=== PATIENT | female | born 1950 | race Native Hawaiian/Other Pacific Islander ===

== ENCOUNTER 2017-02-16 12:09 | Inpatient (IN) | payer OTHER, MEDICARE ==
[~2017-02-16] VITALS: Ht 139.7 cm; Wt 33.6 kg
--- NOTE | 2017-02-16 12:20 | NUR ---
PT IS IN ROOM #2B , WAITING FOR DR RYAN EVALUATION.
[2017-02-16] MEDS ORDERED: FAMO40TA71 PO (12:30)
[2017-02-16] MEDS ORDERED: ASPI81TA31 PO (12:30)
[2017-02-16] MEDS ORDERED: [UNRECOGNIZED DRUG - REMARK] SQ (12:30)
[2017-02-16] MEDS ORDERED: DONE5TAB3 PO (12:30)
[2017-02-16] MEDS ORDERED: GEMF600T PO (12:30)
[2017-02-16] MEDS ORDERED: TOPI25TA8 PO (12:30)
[2017-02-16] MEDS ORDERED: METO25TA6 PO (12:30)
[2017-02-16] MEDS ORDERED: LEVE750T4 PO (12:30)
[2017-02-16] MEDS ORDERED: METF10002 PO (12:30)
--- NOTE | 2017-02-16 12:45 | NUR ---
DR RYAN EVALUATED THE PT.
[2017-02-16 13:22] LABS: BASOPHILS % (AUTO) 0.3 % (0.0-2.0); EOSINOPHILS # (AUTO) 0.1 K/uL (0.0-0.7); EOSINOPHILS % (AUTO) 0.8 % (0.0-7.0); HEMATOCRIT 34.8 % (37.0-47.0); HEMOGLOBIN 12.1 g/dL (12.0-16.0); LYMPHOCYTES # (AUTO) 1.9 K/uL (0.8-4.8); LYMPHOCYTES % (AUTO) 13.1 % (20.5-51.5); MEAN CORPUSCULAR HEMOGLOBIN 30.9 uug (27.0-31.0); MEAN CORPUSCULAR HGB CONC 35 g/dL (32.0-37.0); MEAN CORPUSCULAR VOLUME 88.5 fL (81.0-99.0); NEUTROPHILS # (AUTO) 11.3 K/uL (1.8-8.9); NEUTROPHILS % (AUTO) 78.8 % (38.5-71.5); PLATELET COUNT (AUTO) 233 K/uL (150-450); RED BLOOD CELL COUNT(AUTO) 3.94 MIL/uL (4.20-5.40); RED CELL DISTRIBUTION WIDTH 12.9 % (11.5-14.5); WHITE BLOOD COUNT (AUTO) 14.3 K/uL (4.0-11.2)
[2017-02-16 13:26] LABS: CALCIUM 9.4 mg/dL (8.5-10.1); CREATININE 1.2 mg/dL (0.6-1.3); POTASSIUM 3.8 mmol/L (3.5-5.1)
[2017-02-16 13:33] LABS: TROPONIN I < 0.017 ng/mL (0.00-0.056)
[2017-02-16 13:38] LABS: ALBUMIN 4.1 g/dL (3.4-5.0); BILIRUBIN,DIRECT 0.1 mg/dL (0.0-0.2); BILIRUBIN,TOTAL 0.3 mg/dL (0.2-1.0)
[2017-02-16 13:43] LABS: LACTIC ACID 2.5 mmol/L (0.4-2.0)
[2017-02-16] MEDS ORDERED: IV NORMAL SALINE 1000 ML BAG IV ONE (14:00)
[2017-02-16] MEDS ORDERED: PIPERACILLIN SODIUM/TAZOBACTAM 3.375 G in IV DEXTROSE 5% 50 ML IV ONE (14:00)
--- NOTE | 2017-02-16 14:08 | NUR ---
Pt transferred to ct via [facility].
[2017-02-16] MEDS ORDERED: PIPERACILLIN/TAZOBACTAM/D5W 50 ML IV ONE (14:26)
--- NOTE | 2017-02-16 14:29 | NUR ---
CODE SEPSIS WAS CALLED BY DR RYAN. CODE SEPEIS PROTOCOL STARTED.
--- NOTE | 2017-02-16 15:56 | NUR ---
PT WAS TRANSFERED TO TELEMETRY ROOM #214. REPORT WAS GIVEN TO STORAGE GARAGE ATTENDANT.
[2017-02-16] MEDS ORDERED: ACETAMINOPHEN 325 MG TABLET PO PRN (16:30)
[2017-02-16] MEDS ORDERED: ZOLPIDEM 5 MG TABLET PO PRN (16:30)
[2017-02-16] MEDS ORDERED: MAGNESIUM HYDROXIDE 30 ML LIQUID UDC PO PRN (16:30)
[2017-02-16] MEDS ORDERED: HYDROCODONE/APAP 5-325MG TABLET PO PRN (16:30)
[2017-02-16] MEDS ORDERED: ONDANSETRON 4 MG/2 ML VIAL IV PRN (16:30)
[2017-02-16] MEDS ORDERED: Z GUARD REMEDY PASTE 57 GM TUBE TOP PRN (16:30)
[2017-02-16] MEDS ORDERED: DEXTROSE 50% 50 ML DISP.SYRIN IV PRN (16:30)
[2017-02-16] MEDS ORDERED: ENOXAPARIN SODIUM 40 MG/0.4 ML DISP.SYRIN SQ SCH (16:30)
[2017-02-16 16:38] VITALS: BP 98/59
--- NOTE | 2017-02-16 16:38 | NUR ---
Received from ER, per jose this 66 yo female, with symptoms of right sided weakness from report, with diagnosis of Sepsis. Transferred to bed comfortably.Routine admission care rendered. Awake, alert, confused, Japanese speaking,smiling, cooperative with care. Noted loose stool, incontinence care done. Saline right forerarm. Dr. Carroll informed of admission with orders
[2017-02-16] MEDS ORDERED: METOPROLOL TARTRATE 25 MG TABLET PO SCH (17:00)
[2017-02-16] MEDS ORDERED: METFORMIN HCL 500 MG TABLET PO SCH (18:00)
[2017-02-16] MEDS: BLOOD SUGAR DIAGNOSTIC 1 EACH STRIP VI SCH ×2 (18:04→21:37)
[2017-02-16] MEDS: TOPIRAMATE 25 MG TABLET PO SCH (18:04)
[2017-02-16] MEDS: IV NS 1000 ML 1,000 ML IV PRN (18:08)
[2017-02-16] MEDS: INSULIN REGULAR, HUMAN 300 UNIT/3 ML VIAL SQ PRN (18:09)
--- NOTE | 2017-02-16 18:23 | NUR ---
Ate dinner. IVF started as ordered. Kept dry and comfortable. Tele SB 59.
[2017-02-16 19:00] VITALS: BP 94/59
[2017-02-16] MEDS: DONEPEZIL 5 MG TABLET PO SCH (20:35)
[2017-02-16] MEDS: METOPROLOL TARTRATE 25 MG TABLET PO SCH (20:35)
[2017-02-16] MEDS: LEVETIRACETAM 500 MG TABLET PO SCH (20:35)
[2017-02-16] MEDS: PIPERACILLIN/TAZOBACTAM/D5W 50 ML IV SCH (20:37)
[2017-02-16] MEDS ORDERED: ENOXAPARIN SODIUM 30 MG/0.3 ML DISP.SYRIN SUBCUT SCH (21:00)
[2017-02-16] MEDS ORDERED: LEVETIRACETAM 250 MG TABLET PO SCH (21:00)
[2017-02-16] MEDS ORDERED: PIPERACILLIN SODIUM/TAZOBACTAM 4.5 G in IV DEXTROSE 5% 50 ML IV SCH (22:00)
[2017-02-17] VITALS: BP 94/55
[2017-02-17] MEDS: PIPERACILLIN/TAZOBACTAM/D5W 50 ML IV SCH ×4 (01:07→20:45)
[2017-02-17 04:00] VITALS: BP 121/80
[2017-02-17 04:53] LABS: *BILIRUBIN,URIN NEGATIVE (NEGATIVE); *BLOOD, URINE Trace-intact (NEGATIVE); *CLARITY,URINE CLEAR (CLEAR); *COLOR,URINE YELLOW (YELLOW); *KETONES,URINE NEGATIVE (NEGATIVE); *PROTEIN,URINE NEGATIVE (NEGATIVE); *UROBILINOGEN,URINE 0.2 E.U./dl (NORMAL); LEUKOCYTE ESTERASE ,URINE NEGATIVE (NEGATIVE); NITRITE, URINE NEGATIVE (NEGATIVE); UGLUCOSE NEGATIVE (NEGATIVE)
[2017-02-17 05:00] LABS: BACTERIA,URINE FEW /HPF (NONE SEEN); RBC,URINE 0-3 /HPF (0-3); SQUAMOUS EPITHELIAL CELL,UR FEW /HPF (NONE SEEN)
--- NOTE | 2017-02-17 05:34 | NUR ---
PT SLEPT WELL THROUGH THE NIGHT AND WAS EASILY AWOKEN. PT SHOWED NO S/S OF PAIN OR DIFFICULTY BREATHING. PT IS IN NO ACUTE DISTRESS, NO SIGNIFICANT CHANGES NOTED. PT WAS SINUS RHYTHM/ SINUS DEYANIRA ON THE MONITOR. IVF RUNNING, TOLERATING WELL. ALL NEEDS MET SAFETY MEASURES ARE IN PLACE, CALL LIGHT WITHIN REACH, BED ALARM IS ON.
[2017-02-17] MEDS: PANTOPRAZOLE SODIUM 40 MG TABLET.DR PO SCH (06:33)
[2017-02-17] MEDS: BLOOD SUGAR DIAGNOSTIC 1 EACH STRIP VI SCH ×4 (06:54→22:25)
[2017-02-17] MEDS: TOPIRAMATE 25 MG TABLET PO SCH ×2 (08:15→17:04)
[2017-02-17] MEDS: GEMFIBROZIL 600 MG TABLET PO SCH (08:15)
[2017-02-17] MEDS: ASPIRIN 81 MG TAB.CHEW PO SCH (08:15)
[2017-02-17] MEDS: LEVETIRACETAM 500 MG TABLET PO SCH (08:15)
[2017-02-17] MEDS: METOPROLOL TARTRATE 25 MG TABLET PO SCH ×2 (08:19→20:44)
[2017-02-17] MEDS ORDERED: VANCOMYCIN IV 500 MG in IV DEXTROSE 5% 100 ML IV ONE (09:00)
[2017-02-17 09:15] LABS: CALCIUM 8.3 mg/dL (8.5-10.1); CREATININE 0.8 mg/dL (0.6-1.3); MAGNESIUM 1.8 mg/dL (1.8-2.4); PHOSPHOROUS 3.4 mg/dL (2.5-4.9); POTASSIUM 3.4 mmol/L (3.5-5.1)
[2017-02-17 09:25] LABS: THYROID STIMULATING HORMONE 0.472 mIU/mL (0.358-3.740)
[2017-02-17 09:29] LABS: BASOPHILS % (AUTO) 0.2 % (0.0-2.0); EOSINOPHILS # (AUTO) 0.1 K/uL (0.0-0.7); EOSINOPHILS % (AUTO) 0.6 % (0.0-7.0); HEMATOCRIT 32.5 % (37.0-47.0); HEMOGLOBIN 11.7 g/dL (12.0-16.0); LYMPHOCYTES # (AUTO) 1.2 K/uL (0.8-4.8); LYMPHOCYTES % (AUTO) 11.6 % (20.5-51.5); MEAN CORPUSCULAR HEMOGLOBIN 31.8 uug (27.0-31.0); MEAN CORPUSCULAR HGB CONC 36 g/dL (32.0-37.0); MEAN CORPUSCULAR VOLUME 88.5 fL (81.0-99.0); MONOCYTES # (AUTO) 0.6 K/uL (0.1-1.30); MONOCYTES % (AUTO) 5.6 % (0.0-11.0); NEUTROPHILS # (AUTO) 8.2 K/uL (1.8-8.9); PLATELET COUNT (AUTO) 177 K/uL (150-450); RED BLOOD CELL COUNT(AUTO) 3.67 MIL/uL (4.20-5.40); RED CELL DISTRIBUTION WIDTH 12.9 % (11.5-14.5); WHITE BLOOD COUNT (AUTO) 10.1 K/uL (4.0-11.2)
[2017-02-17 10:32] LABS: EOSINOPHILS % (MANUAL) 1 % (0-8); LYMPHOCYTES % (MANUAL) 13 % (20-40); MONOCYTES % (MANUAL) 6 % (2-10); NEUTROPHILS % (MANUAL) 80 % (42-75); PLATELET ESTIMATE ADEQUATE
[2017-02-17 12:01] VITALS: BP 115/68
--- NOTE | 2017-02-17 14:47 | NUR ---
Clinical pharmacy note:Vancomycin dosing per pharmacy Subjective: To start Vancomycin dosing on this 66 year old female patient for sepsis unknown origin(possibly due to UTI or colitis) Objective: BUN 15 Scr 0.8 WBC 10.1 Temp 98.6 Assessment/plan: Vancomycin 500mg iv x1 was given today at 10am. Will continue as Vancomycin 500mg IV every 26hrs(second dose tomorrow at 1200) and draw trough by 4th(not ordered yet) for expected trough around 15. Will monitor renal function closely to adjust the dose if needed. Will follow daily.
[2017-02-17 15:30] VITALS: BP 113/65
--- NOTE | 2017-02-17 19:32 | NUR ---
PT IS CALM AND COOPERATIVE. NO S/S OF RESPIRATORY DISTRESS NOTED. NO PAIN NOTED. ALL SAFETY NEEDS ARE MET. DAUGHTER OF THE PT IS BY THE BEDSIDE.
[2017-02-17 20:00] VITALS: BP 98/58
[2017-02-17] MEDS: IV NS 1000 ML 1,000 ML IV PRN (20:02)
[2017-02-17] MEDS: DONEPEZIL 5 MG TABLET PO SCH (20:44)
[2017-02-17] MEDS: LEVETIRACETAM 250 MG TABLET PO SCH (20:44)
[2017-02-17] MEDS: MUPIROCIN 2% OINT 22 GM TUBE NS SCH (20:45)
[2017-02-17] MEDS: ENOXAPARIN SODIUM 40 MG/0.4 ML DISP.SYRIN SQ SCH (20:50)
[2017-02-17] MEDS: INSULIN REGULAR, HUMAN 300 UNIT/3 ML VIAL SQ PRN (22:27)
[2017-02-18] MEDS: PIPERACILLIN/TAZOBACTAM/D5W 50 ML IV SCH ×4 (01:59→20:30)
[2017-02-18 06:00] VITALS: BP 120/64
[2017-02-18] MEDS: PANTOPRAZOLE SODIUM 40 MG TABLET.DR PO SCH (06:08)
[2017-02-18] MEDS: BLOOD SUGAR DIAGNOSTIC 1 EACH STRIP VI SCH ×4 (06:42→20:50)
--- NOTE | 2017-02-18 07:15 | NUR ---
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 AFEBRILE. V/S CHECKED AND RECORDED. BS CHECKED, NO S/S OF HYPO/ HYPERGLYCEMIA NOTED. PT AT RISK FOR FALLS, KEPT GETTING UP FROM BED, BED ALARM ON. CLOSELY MONITORED.
--- NOTE | 2017-02-18 08:00 | NUR ---
AWAKE CONFUSED FORGETFUL ON FALL PRECAUTION BED ALARM ON AND CALL RASHID IN REACH EAT BREAKFAST SMALL AMT PO FLD ENC MARIYA MOD AMT
[2017-02-18] MEDS: TOPIRAMATE 25 MG TABLET PO SCH ×2 (08:20→17:44)
[2017-02-18] MEDS: GEMFIBROZIL 600 MG TABLET PO SCH (08:22)
[2017-02-18] MEDS: ASPIRIN 81 MG TAB.CHEW PO SCH (08:22)
[2017-02-18] MEDS: LEVETIRACETAM 250 MG TABLET PO SCH ×2 (08:22→20:30)
[2017-02-18] MEDS: MUPIROCIN 2% OINT 22 GM TUBE NS SCH ×2 (08:24→20:46)
[2017-02-18] MEDS: METOPROLOL TARTRATE 25 MG TABLET PO SCH ×2 (08:24→20:44)
[2017-02-18 12:00] VITALS: BP 141/79
[2017-02-18] MEDS: VANCOMYCIN IV 500 MG in IV DEXTROSE 5% 100 ML IV SCH ×2 (12:00→15:00)
[2017-02-18] MEDS: INSULIN REGULAR, HUMAN 300 UNIT/3 ML VIAL SQ PRN (12:10)
--- NOTE | 2017-02-18 14:18 | NUR ---
Clinical pharmacy note:Vancomycin dosing per pharmacy Subjective: To continue Vancomycin dosing on this 66 year old female patient for sepsis unknown origin (possibly due to UTI or colitis) Objective: BUN 15 (02/17) Scr 0.8 (02/17) WBC 10.1 (02/17) Temp 98.4 Assessment/plan: Will continue as Vancomycin 500mg IV every 26hrs and draw trough by 4th(not ordered yet) for expected trough around 15. Second dose was due today at 1200. Will monitor renal function closely to adjust the dose if needed. Will follow daily.
[2017-02-18 16:00] VITALS: BP 105/66
[2017-02-18 16:03] VITALS: BP 110/56
--- NOTE | 2017-02-18 17:15 | NUR ---
ACCU CHECK BS WAS CHECK IT WAS 47 AND RE CHECK AT [address] KEITA AND LAB WAS CALL TO INFORM AND DRAW BLOOD SUGAR AND GIVE ORANGE JUICE ,EAT DINNER SMALL AMT CLOSED OBSERVATION
--- NOTE | 2017-02-18 17:35 | NUR ---
RECHECK BLOOD SUGAR AGAIN IT WAS 105 AT THIS TIME
--- NOTE | 2017-02-18 19:00 | NUR ---
DR KEITA WAS CALL AGAIN REGARDING NO RETURN CALL AND MESSAGE LEFT
--- NOTE | 2017-02-18 19:30 | NUR ---
STABLE HEMODYNAMIC NO SOB OR PAIN SAFETY MEASURE PROVIDED CALL RASHID IN REACH AND BED ALARM ON
--- NOTE | 2017-02-18 19:45 | NUR ---
PATIENT RECEIVED IN BED RESTING COMFORTABLY. HEP LOCK IN RIGHT FOREARM INTACT AND PATENT. PT BREATH SOUNDS CLEAR UPON AUSCULTATION. NO ACUTE DISTRESS NOTED. BED IN LOW AND LOCKED POSITION, CALL LIGHT AT BED SIDE. WILL CONTINUE TO MONITOR FOR SAFETY.
[2017-02-18 20:00] VITALS: BP 91/56
[2017-02-18] MEDS: LACTOBACILLUS RHAMNOSUS GG 1 EACH CAPSULE PO SCH (20:30)
[2017-02-18] MEDS: DONEPEZIL 5 MG TABLET PO SCH (20:30)
[2017-02-18] MEDS: ENOXAPARIN SODIUM 40 MG/0.4 ML DISP.SYRIN SQ SCH (20:47)
--- NOTE | 2017-02-18 22:00 | NUR ---
PATIENT LOPRESSOR AT 2100 HELD FOR B/P 56, NO S/S HYPOTENSION NOTED. PT COMPLIANT WITH ALL OTHER MEDICATIONS. REMAINS ON ISOLATION OF THE NARES FOR MRSA. NO ACUTE DISTRESS NOTED. WILL CONTINUE TO MONITOR FOR SAFETY.
[2017-02-19] MEDS: PIPERACILLIN/TAZOBACTAM/D5W 50 ML IV SCH ×3 (02:29→12:42)
--- NOTE | 2017-02-19 03:32 | NUR ---
IV IN RIGHT FOREARM DISCONTINUED, OBSERVED LEAKING. IV #20 RESTARTED IN LEFT FOREARM, INTACT AND PATENT. PT TOLERATED WELL. NO ACUTE DISTRESS NOTED.
[2017-02-19 04:23] VITALS: BP 134/75
[2017-02-19] MEDS ORDERED: Z GUARD REMEDY PASTE 57 GM TUBE TOP PRN (05:45)
[2017-02-19] MEDS: PANTOPRAZOLE SODIUM 40 MG TABLET.DR PO SCH (06:15)
--- NOTE | 2017-02-19 06:44 | NUR ---
PT SLEPT INTERMITTENTLY THROUGH OUT THE NIGHT, AWAKE AT TIMES AMBULATING TO RESTROOM. PT COMPLIANT WITH PO MEDICATIONS. NO ACUTE DISTRESS NOTED.
[2017-02-19] MEDS: BLOOD SUGAR DIAGNOSTIC 1 EACH STRIP VI SCH ×2 (07:30→12:26)
--- NOTE | 2017-02-19 08:30 | NUR ---
AWAKE CONFUSED BUT COOPERATE AT THIS TIME NO PAIN OR SOB OOB AMB WELL IN ROOM ON FALL PRECAUTION CALL RASHID IN REACH
[2017-02-19] MEDS: TOPIRAMATE 25 MG TABLET PO SCH (08:33)
[2017-02-19] MEDS: LACTOBACILLUS RHAMNOSUS GG 1 EACH CAPSULE PO SCH (08:33)
[2017-02-19] MEDS: GEMFIBROZIL 600 MG TABLET PO SCH (08:33)
[2017-02-19] MEDS: LEVETIRACETAM 250 MG TABLET PO SCH (08:33)
[2017-02-19] MEDS: ASPIRIN 81 MG TAB.CHEW PO SCH (08:33)
[2017-02-19] MEDS: METOPROLOL TARTRATE 25 MG TABLET PO SCH (08:34)
[2017-02-19] MEDS ORDERED: LEVO500T15 PO (08:36)
[2017-02-19] MEDS: MUPIROCIN 2% OINT 22 GM TUBE NS SCH (08:40)
--- NOTE | 2017-02-19 10:00 | NUR ---
DR KEITA ,LIAT SEEN PATIENT AND ORDER OK TO D/C TO SNF WITH ORDER TODAY FAMILY SISTER AMADOU WAS INFORM AND AWARE OF D/C TO SNF TODAY D/C INSTRUCTION GIVEN REGARDING NEED TO F/U WITH PMD CONTINUE HOME MED AT SNF ,VERBALIZES UNDERSTAND
[2017-02-19 11:25] VITALS: BP 108/52
--- NOTE | 2017-02-19 11:38 | NUR ---
The patient will be discharged today back to [facility] [ ; [address] [place] [address]] via [facility]. Left a message to her niece, Aaliyah Walters [ ] and her sister, Leti Walters [ ], about the discharge. Her RN, Ronda, confirmed with the family that they agree with the discharge. Spoke to Jam from [facility], and he confirmed that they will re-admit the patient today. 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 Ronda will be calling them for the report.
--- NOTE | 2017-02-19 12:00 | NUR ---
EAT WELL OOB AMB IN ROOM NO PAIN OR SOB
[2017-02-19] MEDS: INSULIN REGULAR, HUMAN 300 UNIT/3 ML VIAL SQ PRN (12:30)
--- NOTE | 2017-02-19 13:00 | NUR ---
REPORT GIVEN TO WILLIE SALCEDO AT SNF VIA [facility]
--- NOTE | 2017-02-19 13:45 | NUR ---
Clinical pharmacy note:Vancomycin dosing per pharmacy Subjective: To continue Vancomycin dosing on this 66 year old female patient for sepsis unknown origin (possibly due to UTI or colitis) Objective: BUN 15 (02/17) Scr 0.8 (02/17) WBC 10.1 (02/17) Temp 97.9 Assessment/plan: Will continue same dose of Vancomycin 500mg IV every 26hrs for today. Plan to draw trough by 4th (ordered for 02/20 at 1530). Third dose is due today at 1400. Will monitor renal function closely to adjust the dose if needed. Will follow daily.
[2017-02-19] MEDS: VANCOMYCIN IV 500 MG in IV DEXTROSE 5% 100 ML IV SCH (13:58)
--- NOTE | 2017-02-19 15:00 | NUR ---
D/C TO SNF REPORT GIVEN TO AMB MAN CONDITION STABLE
== END 2017-02-19 15:00 | DRG 723 ==
LOC: ER 12:09 → TELE 16:09 → MED 02-17 13:30
DX: B34.9 Viral infection, unspecified (principal); G71.0 Muscular dystrophy; E11.9 Type 2 diabetes mellitus without complications; R13.10 Dysphagia, unspecified; F03.90 Unspecified dementia, unspecified severity, without behavioral disturbance, psychotic disturbance, mood disturbance, and anxiety; I10 Essential (primary) hypertension; E78.5 Hyperlipidemia, unspecified; G40.909 Epilepsy, unspecified, not intractable, without status epilepticus; I25.10 Atherosclerotic heart disease of native coronary artery without angina pectoris; K21.9 Gastro-esophageal reflux disease without esophagitis; F41.9 Anxiety disorder, unspecified; Z79.84 Long term (current) use of oral hypoglycemic drugs; Z22.322 Carrier or suspected carrier of Methicillin resistant Staphylococcus aureus; Z79.899 Other long term (current) drug therapy
CPT/HCPCS: 36415; 70030-TC; 70450; 71010; 83605; 83735; 84100; 84443; 85025; 85730; 87040; 87086; 87400; 93005; 97001; A4663; J1650; J1815; J2543; J3370; J7030; J7060